=== PATIENT | male | born 1965 | race Two or more races ===

== ENCOUNTER 2018-01-01 11:13 | Emergency (ER) | payer MEDICAID ==
[~2018-01-01] VITALS: Ht 160 cm; Wt 91.9 kg
[2018-01-01 12:53] VITALS: BP 191/113
== END 2018-01-01 14:13 | disposition home or self-care (01) ==
LOC: ER 11:13
DX: M25.511 Pain in right shoulder (principal); E11.9 Type 2 diabetes mellitus without complications; I10 Essential (primary) hypertension
CPT/HCPCS: 73030; 82962